=== PATIENT | female | born 2000 | race Caucasian/White ===

== ENCOUNTER 2025-06-08 10:12 | Emergency (ER) | payer OTHER ==
[~2025-06-08] VITALS: Ht 170.2 cm; Wt 97.3 kg
[2025-06-08 12:34] LABS: Trichomonas vaginalis (AMP) NOT DETECTED (NEGATIVE)
[2025-06-08 12:57] LABS: GC DNA AMPLIFICATION NEGATIVE (NEGATIVE)
[2025-06-08] MEDS ORDERED: DOXY-441 PO (13:18)
[2025-06-08 13:24] VITALS: BP 121/63; TEMP 98.6; O2SAT 98
== END 2025-06-08 13:28 | disposition home or self-care (01) ==
LOC: M ED 10:12
DX: A74.9 Chlamydial infection, unspecified (principal); Z91.010 Allergy to peanuts; Z91.018 Allergy to other foods; Z79.2 Long term (current) use of antibiotics